=== PATIENT | male | born 1970 | race African-American/Black ===

== ENCOUNTER 2024-10-26 09:29 | Emergency (ER) | payer MEDICAID ==
[~2024-10-26] VITALS: Ht 165.1 cm; Wt 98.0 kg
[2024-10-26 09:32] VITALS: O2SAT 99
[2024-10-26 09:39] VITALS: BP 154/78; PULSE 77; RESP 14; TEMP 36.6; O2SAT 96
== END 2024-10-26 12:57 | disposition left against medical advice (07) ==
LOC: ER 09:29
DX: K64.8 Other hemorrhoids (principal); I10 Essential (primary) hypertension
CPT/HCPCS: 99282